=== PATIENT | female | born 1950 | race Caucasian/White ===

== ENCOUNTER 2017-11-27 11:55 | Emergency (ER) | payer MEDICARE, OTHER ==
[2017-11-27 12:02] VITALS: BP 128/93; PULSE 87; RESP 16; TEMP 96.9
--- NOTE | 2017-11-27 12:24 | XR ---
EXAMINATION TYPE: XR knee complete RT DATE OF EXAM: 11/27/2017 CLINICAL HISTORY: pain TECHNIQUE: Three views of the right knee are obtained. COMPARISON: None. FINDINGS: There is no acute fracture/dislocation. The tri-compartment joint spaces appear within no rmal limits. The overlying soft tissue appears unremarkable. IMPRESSION: There is no acute fracture or dislocation.ICD 10 NO FRACTURE, INITIAL EVALUATION
--- NOTE | 2017-11-27 12:30 | ED ---
General Adult HPI - General Chief complaint: Extremity Injury, Lower Stated complaint: RT KNEE INJURY FROM FALL Time Seen by Provider: 11/27/17 12:15 Source: patient, RN notes reviewed Mode of arrival: wheelchair Limitations: no limitations - History of Present Illness Initial comments: 67 yo female presents to the ER with cc of right knee pain. Patient tripped and fell on the ice earlier today. She states she landed right on to her right knee. She states that she's having pain to the whole right knee. She states that it is an achy type pain. Worse to movement or touch. She states that she did not hit her head there is also consciousness. There is no lightheadedness or dizziness prior to the incident. Patient was concerned due to her continued knee pain so she thought that she should be evaluated. Patient denies any recent fever, chills, shortness of breath, chest pain, back pain, abdominal pain , nausea vomiting, numbness or tingling, dysuria or hematuria, constipation or diarrhea, headaches or visual changes, or any other current symptoms. - Related Data Home Medications Medication Instructions Recorded Confirmed Magnesium 200 mg PO DAILY 09/12/17 09/12/17 Multivitamins, Thera [Multivitamin 1 tab PO DAILY 09/12/17 09/12/17 (formulary)] Previous Rx's Medication Instructions Recorded Aspirin EC [Ecotrin] 325 mg PO DAILY #30 tablet. 09/13/17 Allergies Allergy/AdvReac Type Severity Reaction Status Date / Time No Known Allergies Allergy Verified 11/27/17 11:59 Review of Systems ROS Statement: Those systems with pertinent positive or pertinent negative responses have been documented in the HPI. ROS Other: All systems not noted in ROS Statement are negative. Past Medical History Past Medical History: No Reported History Additional Past Medical History / Comment(s): past vertigo with lt ear problem, anxiety, PROBLEMS SLEEPING History of Any Multi-Drug Resistant Organisms: None Reported Past Surgical History: Cholecystectomy, Hernia Repair, Hysterectomy, Tonsillectomy Additional Past Surgical History / Comment(s): 3 hernias repairs ,lt ear patch Past Anesthesia/Blood Transfusion Reactions: No Reported Reaction Additional Past Anesthesia/Blood Transfusion Reaction / Comment(s): cluasterphobia Past Psychological History: Anxiety Smoking Status: Never smoker - Past Family History Mother Family Medical History: Coronary Artery Disease (CAD), Diabetes Mellitus Additional Family Medical History / Comment(s): cabg Brother(s) Family Medical History: Cancer Additional Family Medical History / Comment(s): throat cancer Father Family Medical History: Cancer Additional Family Medical History / Comment(s): lung cacner, smoked 5ppd. dads dad had a stroke General Exam - General Exam Comments Initial Comments: General: The patient is awake and alert, in no distress, and does not appear acutely ill. Neck: The neck is supple, there is no tenderness. Cardiovascular: There is a regular rate and rhythm. No murmur, rub or gallop is appreciated. Respiratory: Lungs are clear to auscultation, respirations are non-labored, breath sounds are equal. No wheezes, stridor, rales, or rhonchi. Musculoskeletal: Sensation intact with 2+ pulses throughout the right lower externa. Fund motion of right hip right knee and right ankle. Patient does have some mild abrasion to the anterior right knee. Full range motion of the knee with diffuse tenderness to touch. No localized point tenderness. Fund motion of right ankle with no deformity or swelling. Neurological: CN II-XII intact, There are no obvious motor or sensory deficits. Coordination appears grossly intact. Speech is normal. Skin: Skin is warm and dry and no rashes or lesions are noted. Psychiatric: Normal mood and affect. Limitations: no limitations Course Vital Signs 11/27/17 12:00 Temperature 96.9 F L Pulse Rate 87 Respiratory 16 Rate Blood Pressure 128/93 O2 Sat by Pulse 98 Oximetry Procedures - Orthopedic Splinting/Casting Injury #1 Side: right Lower Extremity Injury Location: knee Lower Extremity Immobilizer: Ash wrap Medical Decision Making - Medical Decision Making 67-year-old female presents emergency 5 chief complaint right knee pain. This time x-rays reviewed that shows no acute process. We did place the patient in the Ash wrap. We discussed Motrin Tylenol for pain ice ice and elevation. We discussed return parameters and all the patient's questions. She stated that she understood and she is agreement this plan. All questions have been answered. At this time the patient will be discharged home. - Radiology Data Radiology results: report reviewed, image reviewed Disposition Clinical Impression: Abrasion, right knee, initial encounter, Contusion of right knee Disposition: HOME SELF-CARE Condition: Stable Instructions: Abrasion (ED), Contusion in Adults (ED) Additional Instructions: Please use medication as discussed. Please follow up with family doctor if symptoms have not improved over the next two days. Please return to the emergency room if your symptoms increase or worsen or for any other concerns. Referrals: Garcia Andersen MD [Primary Care Provider] - 1-2 days Time of Disposition: 12:29
== END 2017-11-27 12:35 | disposition home or self-care (01) ==
LOC: EC 11:55
DX: S80.01XA Contusion of right knee, initial encounter (principal); Z79.899 Other long term (current) drug therapy; W00.0XXA Fall on same level due to ice and snow, initial encounter
CPT/HCPCS: 99283